=== PATIENT | male | born 1975 | race Caucasian/White ===

== ENCOUNTER 2017-10-20 09:04 | Emergency (ER) | payer SELFPAY ==
[2017-10-20 09:08] VITALS: BP 142/83
--- NOTE | 2017-10-20 10:19 | ER Document Report ---
HPI - HPI Patient complains to provider of: Left arm pain Onset: Yesterday Onset/Duration: Sudden Quality of pain: Sharp Pain Level: 5 Context: Patient states he was attempting to lift a long tractor into a truck and lifted up on the machine and had a sudden pain to his left upper arm area. Patient states that it felt as though the muscle rolled. Patient states since then he has had weakness with lifting his arm up. Associated Symptoms: Other - L upper arm pain Exacerbated by: Movement Relieved by: Denies Similar symptoms previously: No Recently seen / treated by doctor: No - ROS ROS below otherwise negative: Yes Systems Reviewed and Negative: Yes All other systems reviewed and negative - NEURO Neurology: REPORTS: Weakness - LUE - MUSCULOSKELETAL Musculoskeletal: REPORTS: Extremity pain - LUE - DERM Skin Color: Normal Skin Problems: None Past Medical History - General Information source: Patient - Social History Smoking Status: Current Every Day Smoker Smoking Education Provided: Yes Frequency of alcohol use: Rare Drug Abuse: None Occupation: steel work Family History: Reviewed & Not Pertinent Patient has suicidal ideation: No Patient has homicidal ideation: No - Medical History Medical History: Negative Renal/ Medical History: Denies: Hx Peritoneal Dialysis Past Surgical History: Reports: Hx Orthopedic Surgery - Left hand Vertical Provider Document - CONSTITUTIONAL Agree With Documented VS: Yes Exam Limitations: No Limitations General Appearance: WD/WN, No Apparent Distress - INFECTION CONTROL TRAVEL OUTSIDE OF THE [place] IN LAST 30 DAYS: No - HEENT HEENT: Atraumatic, Normocephalic - NECK Neck: Normal Inspection, Supple - RESPIRATORY Respiratory: Breath Sounds Normal, No Respiratory Distress O2 Sat by Pulse Oximetry: 100 - CARDIOVASCULAR Cardiovascular: Regular Rate, Regular Rhythm Pulses: Normal: Radial - BACK Back: Normal Inspection - MUSCULOSKELETAL/EXTREMETIES Musculoskeletal/Extremeties: MAEW, Tender - Tenderness along palpation of bicep muscle. Patient with weakness with flexion of left elbow. Patient with decreased muscle tone to left bicep as compared with the right - NEURO Level of Consciousness: Awake, Alert, Appropriate - DERM Integumentary: Warm, Dry, No Rash Course - Re-evaluation Re-evalutation: 10/20/17 10:18 The patient has been informed that they may have pre-hypertension or hypertension based on a blood pressure reading in the emergency department. I recommend that patient call the primary care provider listed on their discharge instructions or a physician of their choice by this week to arrange follow-up for further evaluation of possible pre-hypertension or hypertension. - Vital Signs Vital signs: Temp Pulse Resp BP Pulse Ox 98.6 F 68 16 142/83 H 100 10/20/17 09:07 10/20/17 09:07 10/20/17 09:07 10/20/17 09:07 10/20/17 09:07 Procedures - Immobilization Left Arm Pre-Proc Neuro Vasc Exam: Normal Immobilizer type: Sling Performed by: RN Post-Proc Neuro Vasc Exam: Normal Alignment checked and good: Yes Discharge - Discharge Clinical Impression: Elevated blood pressure reading, Injury of tendon of biceps Condition: Stable Disposition: HOME, SELF-CARE Instructions: Ice & Elevation ([facility]), Oral Narcotic Medication ([facility]), Temporary Sling ([facility]), Tendon Strain ([facility]) Additional Instructions: Return immediately for any new or worsening symptoms Followup with your primary care provider, call tomorrow to make a followup appointment You have symptoms concerning for bicep tendon tear or rupture. You will need to follow-up with orthopedic doctor for evaluation, call today for follow-up appointment. Prescriptions: Hydrocodone/Acetaminophen [[place] 5-325 Tablet] 1 each PO Q4 PRN #15 tablet PRN Reason: Naproxen [Naprosyn 250 Nmg Tablet] 1 tab PO BID #14 tablet Forms: Elevated Blood Pressure, Smoking Cessation Education, Return to Work Referrals: [facility] ([facility]) [Provider Group] - Follow up tomorrow
== END 2017-10-20 10:20 | disposition home or self-care (01) ==
LOC: ER 09:04
DX: S46.209A Unspecified injury of muscle, fascia and tendon of other parts of biceps, unspecified arm, initial encounter (principal); X50.0XXA Overexertion from strenuous movement or load, initial encounter; Y93.89 Activity, other specified; R53.1 Weakness; R03.0 Elevated blood-pressure reading, without diagnosis of hypertension; F17.200 Nicotine dependence, unspecified, uncomplicated
CPT/HCPCS: 99283

== ENCOUNTER → 2017-11-04 | Outpatient (CLI) | payer OTHER ==
--- NOTE | 2017-11-04 15:01 | RADIOLOGY REPORT (SQ) ---
EXAM DESCRIPTION: MRI LT UPPER JOINT WITHOUT COMPLETED DATE/TIME: 11/04/2017 1:42 pm REASON FOR STUDY: STRAIN OF MUSCLS FASCIA AND TENDON OF OTHER PARTS OF BICEPS, LEFT ARM S46.212A ST RAIN OF MUSC/FASC/TEND PRT BICEPS, LEFT ARM, INIT COMPARISON: None. TECHNIQUE: Left elbow images acquired and stored on PACS. Multiplanar images to include fat sensitiv e sequences as T1, fluid sensitive sequences as T2/STIR, cartilage sensitive sequences as FSPD, and g radient echo sequences. LIMITATIONS: None. FINDINGS: BONE MARROW: No alteration of signal to suggest marrow replacement or edema. No occult fra cture. No large osteophytes. JOINT EFFUSION: None noted. No loose bodies. ARTICULAR SURFACES: Normal. MEDIAL COLLATERAL LIGAMENT COMPLEX: Intact without edema or tear. MEDIAL EPICONDYLE AND COMMON FLEXOR TENDON: No tendinopathy. No partial or full-thickness tear. LATERAL COLLATERAL LIGAMENT: Intact without edema or tear. LATERAL EPICONDYLE AND COMMON EXTENSOR TENDON: No tendinopathy. No partial or full-thickness tear. LATERAL ULNAR COLLATERAL LIGAMENT: Intact without evidence for tear. BICEPS TENDON: Full-thickness tear distal biceps tendon, with proximal retraction of the tendon from its insertion on the radial tuberosity about 4 cm. There is fluid in the tendon gap on sagittal imag e 10, with the torn retracted tendon seen on sagittal image 9. There are a few distal tendon fibers along the greater tuberosity on axial STIR images 2 through 5. TRICEPS TENDON: Intact. ULNAR NERVE: Well-visualized without edema or encroachment. ADJACENT SOFT TISSUES: No masses or edema. OTHER: No other significant finding. IMPRESSION: Full-thickness tear biceps tendon at its distal attachment TECHNICAL DOCUMENTATION: JOB ID: [id number] [employer]- All Rights Reserved Reading location - IP/workstation name: [email or web address]
== END ==
LOC: RAD 12:47
PROVIDERS: ATTEND Orthopaedic Surgery
DX: S46.212A Strain of muscle, fascia and tendon of other parts of biceps, left arm, initial encounter (principal); X58.XXXA Exposure to other specified factors, initial encounter; Y93.9 Activity, unspecified; Y92.9 Unspecified place or not applicable; Y99.9 Unspecified external cause status

== ENCOUNTER 2017-11-14 11:46 | Day surgery (SDC) | payer OTHER ==
[~2017-11-14 11:46] MED LIST: CEFAZOLIN SODIUM 2 GM in NORMAL SALINE 100 ML IV SCH
[2017-11-14 12:45] LABS: APPEARANCE,URINE CLEAR; BILIRUBIN,URINE NEGATIVE (NEGATIVE); COLOR,URINE YELLOW; GLUCOSE, URINE NEGATIVE (NEGATIVE); KETONES,URINE NEGATIVE (NEGATIVE); LEUKOCYTE ESTERASE,URINE NEGATIVE (NEGATIVE); NITRITE,URINE NEGATIVE (NEGATIVE); PROTEIN,URINE NEGATIVE (NEGATIVE); URINE SPECIFIC GRAVITY 1.013; UROBILINOGEN,URINE NEGATIVE mg/dL (<2.0)
--- NOTE | 2017-11-14 13:14 | RADIOLOGY REPORT (SQ) ---
EXAM DESCRIPTION: CHEST SINGLE VIEW COMPLETED DATE/TIME: 11/14/2017 1:02 pm REASON FOR STUDY: PREOP COMPARISON: None. EXAM PARAMETERS: NUMBER OF VIEWS: One view. TECHNIQUE: Single frontal radiographic view of the chest acquired. RADIATION DOSE: NA LIMITATIONS: None. FINDINGS: LUNGS AND PLEURA: No opacities, masses or pneumothorax. No pleural effusion. MEDIASTINUM AND HILAR STRUCTURES: No masses. Contour normal. HEART AND VASCULAR STRUCTURES: Heart normal in size. Normal vasculature. BONES: No acute findings. HARDWARE: None in the chest. OTHER: No other significant finding. IMPRESSION: NO ACUTE RADIOGRAPHIC FINDING IN THE CHEST. TECHNICAL DOCUMENTATION: JOB ID: [id number] [employer]- All Rights Reserved Reading location - IP/workstation name: [email or web address]
[2017-11-14 13:32] LABS: HEMATOCRIT 45.5 % (37.9-51.0); HEMOGLOBIN 15.6 g/dL (13.5-17.0); MEAN CORPUSCULAR HEMOGLOBIN 32.4 pg (27.0-33.4); MEAN CORPUSCULAR HGB CONC 34.2 g/dL (32.0-36.0); MEAN CORPUSCULAR VOLUME 95 fl (80-97); RED BLOOD COUNT 4.81 10^6/uL (4.35-5.55); RED CELL DISTRIBUTION WIDTH 12.7 % (11.5-14.0); WHITE BLOOD COUNT 13.5 10^3/uL (4.0-10.5)
[2017-11-14 13:45] LABS: ANION GAP 7 (5-19); BLOOD UREA NITROGEN 10 mg/dL (7-20); CALCIUM 9.3 mg/dL (8.4-10.2); CARBON DIOXIDE 25 mmol/L (22-30); CHLORIDE 109 mmol/L (98-107); GLUCOSE 82 mg/dL (75-110); POTASSIUM 4.3 mmol/L (3.6-5.0); SODIUM 141.2 mmol/L (137-145)
[2017-11-14 13:53] LABS: PLATELET COUNT 217 10^3/uL (150-450)
[2017-11-14] MEDS ORDERED: BUPIVACAINE HCL 0.5 % INJ/PF 30 ML SDV ONE (14:27)
[2017-11-14] MEDS ORDERED: BACITRACIN INJ 50,000 UNIT VIAL ONE (14:27)
[2017-11-14] MEDS ORDERED: FENTANYL CITRATE INJ/PF 100 MCG/2 ML AMPUL ONE ×2 (15:58)
[2017-11-14] MEDS ORDERED: LIDOCAINE 2% INJ-PF (20 MG/ML) 10 ML AMPUL ONE (15:58)
[2017-11-14] MEDS ORDERED: DEXAMETHASONE SOD PHOSPHATE INJ 4 MG/1 ML VIAL ONE (15:59)
[2017-11-14] MEDS ORDERED: ONDANSETRON HCL INJ/PF 4 MG/2 ML SDV ONE (15:59)
[2017-11-14] MEDS ORDERED: ACETAMINOPHEN 100 ML IV ONE (15:59)
[2017-11-14] MEDS ORDERED: PROPOFOL INJ 200 MG/20 ML VIAL IV ONE (15:59)
[2017-11-14] MEDS ORDERED: MIDAZOLAM 2 MG/2 ML INJ ONE (15:59)
[2017-11-14] MEDS ORDERED: MORPHINE SULFATE 10 MG/ML INJ IV PRN (17:12)
[2017-11-14] MEDS ORDERED: MEPERIDINE HCL/PF INJ 25 MG/1 ML DISP.SYRIN IV PRN (17:12)
[2017-11-14] MEDS ORDERED: PROMETHAZINE HCL INJ 25 MG/1 ML VIAL IV PRN ×2 (17:12)
[2017-11-14] MEDS ORDERED: DIPHENHYDRAMINE HCL 50 MG/ML VIAL IV PRN (17:12)
[2017-11-14] MEDS ORDERED: OXYCODONE-ACETAMINOPHEN 5-325 MG TABLET PO PRN ×3 (17:12→18:05)
[2017-11-14] MEDS ORDERED: FENTANYL CITRATE INJ/PF 100 MCG/2 ML AMPUL IV PRN ×3 (17:12)
[2017-11-14] MEDS ORDERED: ONDANSETRON HCL INJ/PF 4 MG/2 ML SDV IV PRN (18:05)
--- NOTE | 2017-11-14 18:06 | Discharge Summary ---
Discharge Summary (SDC) - Discharge Final Diagnosis: Left distal biceps rupture Date of Surgery: 11/14/17 Discharge Date: 11/14/17 Condition: Good Treatment or Instructions: Schedule Follow Up w/ Dr. Junior Devlin @ [facility] for Surgery to be seen in 10-14 days or as scheduled [place]: [place]: [place]: Ice and elevate Keep splint clean/dry/intact. If your fingers become numb please unwrap the Tony wrap but leave the splint in place, if the sensation does not return within 30 minutes please return to the emergency department. May begin finger range of motion attempting to make full fist. Please use ibuprofen (Motrin or Advil) 600-800 mg every 8 hours as needed for pain or fever DO NOT TAKE w/ TORADOL may use once TORADOL complete. You may also use acetaminophen (Tylenol) 1000 mg every 4-6 hours as needed for pain or fever. Please be aware that many medications contain acetaminophen, do not exceed a total of 1000 mg of acetaminophen every 6 hours. If ibuprofen and acetaminophen are not sufficient for your pain you may take the Percocet/Nutley. Please be aware that the Percocet/Nutley does contain Tylenol. Stool softener of choice when on pain medication. Prescriptions: Ketorolac Tromethamine [Toradol 10 mg Tablet] 10 mg PO Q8HP PRN #10 tablet PRN Reason: Oxycodone HCl/Acetaminophen [Percocet 5-325 mg Tablet] 1 - 2 tab PO ASDIR PRN # 30 tablet PRN Reason: Discharge Diet: As Tolerated Respiratory Treatments at Home: Deep Breathing/Coughing Report the Following to Your Physician Immediately: Increase in Pain, Fever over 101 Degrees, Unusual Bleeding, Redness, Swelling, Warmth, Increased Soreness
--- NOTE | 2017-11-14 18:11 | Operative Report ---
Operative Report DATE OF SURGERY: 11/14/17 PREOPERATIVE DIAGNOSIS: Left distal biceps tendon rupture POSTOPERATIVE DIAGNOSIS: Same OPERATION: Repair of left distal biceps SURGEON: MARTHA RICO ANESTHESIA: GA COMPLICATIONS: None ESTIMATED BLOOD LOSS: Minimal PROCEDURE: Indication for above procedure: 42-year-old male who sustained a injury to his left elbow. He was seen at the emergency room where radiographs and examination findings were consistent with distal biceps rupture. MRI was obtained confirming diagnosis. Subsequently followed up with me we discussed treatment options including operative versus nonoperative intervention decision was made to proceed with operative treatment. Procedure In Detail: Patient was seen and evaluated in the preoperative holding area. The left upper extremity was initialized and marked. Patient received 2g of Ancef IV for bacterial prophylaxis. Patient was taken back to the operative room where transferred to the operative table and placed under general anesthesia. Once they were adequately anesthetized a nonsterile tourniquet was placed on the upper extremity. A surgical team debriefing was performed ensuring all instrumentation was available, the surgical procedure was discussed with possible concerns reviewed. The upper extremity was prepped with Chloroprep and draped in a sterile fashion. A timeout was done identifying correct patient, procedure and extremity everyone in attendance agree with this and verbalized no concerns. The extremity was exsanguinated the tourniquet was inflated to 250 mmHg. Longitudinal skin incision was made 3 cm distal to the antecubital fascia. Blunt dissection was performed the lateral antebrachial cutaneous nerve was identified and retracted. The distal biceps tendon was identified there is significant fraying of the distal portion. This area was debrided I then freed the biceps from any surrounding scar tissue proximally. Once appropriate excursion of the biceps was achieved the turned my attention to preparation of the insertion. Blunt dissection was performed down to the radial tuberosity. The leash of Kevin was identified. Small tributaries were isolated and controlled with bipolar and ties. There was some remaining fibers of the biceps attached to the radial tuberosity. This was carefully debrided. To further expose the radial tuberosity my biology research assistant held the arm in full supination in the central portion of the radial tuberosity was identified. A Hohmann retractor was placed ulnarly but not placed radially to avoid iatrogenic injury to the PIN nerve. A bicortical guidepin was placed centrally 30 and ulnarly. Measurement of the distal biceps demonstrate a 8 mm tunnel. Unicortical reamer was used to complete the near cortex. Irrigation was performed during this step to avoid residual bone. With the arm in full supination and flexion to 90 the tendon was docked within the radial tuberosity. With a free needle a horizontal mattress suture was placed and secured. With the remaining limb a 7 x 10 mm tenodesis screw was placed along the radial border of the biceps to further displacement ulnarly. I was able to extend the elbow to approximately 60 of extension. The wound was then copiously irrigated with normal saline. C-arm fluoroscopy was obtained confirming appropriate placement of the button. Subcutaneous tissues were closed with 4-0 Monocryl suture. Skin was closed with Dermabond. 20 cc of 0.5% Marcaine with epinephrine was injected for postoperative pain control. Patient was placed in a posterior splint maintaining flexion at 80 and full supination. Tourniquet was deflated. Patient good peripheral perfusion. Sponge counts, instrument counts, needle counts counts were correct. Patient was then awoken from anesthesia. Transferred from the operating room table to the operating room stretcher. There was no intraoperative complications patient tolerated procedure well stable to PACU. Postoperative plan: Patient will follow-up the office in 2 weeks for wound check and will be started on therapy as per distal biceps protocol.
[2017-11-14] MEDS: FENTANYL CITRATE INJ/PF 100 MCG/2 ML AMPUL ONE ×2 (18:16→18:25)
[2017-11-14] MEDS ORDERED: MORPHINE SULFATE 10 MG/ML INJ ONE (18:26)
--- NOTE | 2017-11-14 18:28 | RADIOLOGY REPORT (SQ) ---
EXAM DESCRIPTION: NO CHG FLUORO; ELBOW LEFT AP/LATERAL COMPLETED DATE/TIME: 11/14/2017 6:03 pm REASON FOR STUDY: LEFT ELBOW TENDON REPAIR COMPARISON: MR 11/04/2017 FLUOROSCOPY TIME: 12 seconds 1 Image saved to PACS LIMITATIONS: None. PROCEDURE: Biceps tendon repair FINDINGS: A single image was obtained from fluoro document the tendon repair. IMPRESSION: Biceps tendon repair P COMMENT: PQRS 6045F: Fluoroscopy time of the procedure is documented in the report. TECHNICAL DOCUMENTATION: JOB ID: [id number] [employer]- All Rights Reserved Reading location - IP/workstation name: [email or web address]
--- NOTE | 2017-11-14 18:28 | RADIOLOGY REPORT (SQ) ---
EXAM DESCRIPTION: NO CHG FLUORO; ELBOW LEFT AP/LATERAL COMPLETED DATE/TIME: 11/14/2017 6:03 pm REASON FOR STUDY: LEFT ELBOW TENDON REPAIR COMPARISON: MR 11/04/2017 FLUOROSCOPY TIME: 12 seconds 1 Image saved to PACS LIMITATIONS: None. PROCEDURE: Biceps tendon repair FINDINGS: A single image was obtained from fluoro document the tendon repair. IMPRESSION: Biceps tendon repair P COMMENT: PQRS 6045F: Fluoroscopy time of the procedure is documented in the report. TECHNICAL DOCUMENTATION: JOB ID: [id number] [employer]- All Rights Reserved Reading location - IP/workstation name: [email or web address]
[2017-11-14] MEDS ORDERED: PROMETHAZINE HCL INJ 25 MG/1 ML VIAL ONE (18:48)
[2017-11-14] MEDS: CEFAZOLIN 2 GM/D5W RTU 2 GM/50 ML RTUPB IV PRN ×3 (21:22→23:15)
[2017-11-14 22:07] VITALS: BP 131/71
--- NOTE | 2017-11-14 22:16 | EKG REPORT ---
SEVERITY:- NORMAL ECG - SINUS RHYTHM : Confirmed by: Chay Arshad 14-Nov-2017 22:15:10
== END 2017-11-14 22:30 | disposition home or self-care (01) ==
LOC: 4N 11:46 → OROUT 11:46
PROVIDERS: ATTEND Orthopaedic Surgery
DX: S46.211D Strain of muscle, fascia and tendon of other parts of biceps, right arm, subsequent encounter (principal); X58.XXXD Exposure to other specified factors, subsequent encounter; F17.210 Nicotine dependence, cigarettes, uncomplicated
CPT/HCPCS: 36415; 85027; 80048; 81001; 71045; 73070; 93005; 93010; 24341; C1713; J2250; J3490 ×2; J1100; J3010; J2270; J2550; J2405; J2704; J0690; J0131; 01710

== ENCOUNTER 2018-07-22 10:34 | Emergency (ER) | payer OTHER ==
[2018-07-22 10:46] VITALS: BP 121/77
[2018-07-22] MEDS ORDERED: SULFAMETHOXAZOLE/TRIMETHOPRIM 800-160 MG TABLET PO ONE (11:10)
[2018-07-22] MEDS ORDERED: IBUPROFEN 800 MG TABLET PO ONE (11:10)
[2018-07-22] MEDS ORDERED: CEPHALEXIN 500 MG CAPSULE PO ONE (11:10)
--- NOTE | 2018-07-22 11:16 | ER Document Report ---
HPI - HPI Patient complains to provider of: Nose tenderness Time Seen by Provider: 07/22/18 10:56 Onset: Other - 4 days Onset/Duration: Worse Quality of pain: Sharp Pain Level: 4 Context: Patient complains of nose tenderness swelling and erythema for the past 4 days. Patient states pain does radiate given him a headache. Patient denies any fever. Patient denies any injury to the nose. Patient states that he has had a family member in the household with MRSA recently. Associated Symptoms: Other - Nose tenderness and swelling. denies: Fever Exacerbated by: Denies Relieved by: Denies Similar symptoms previously: No Recently seen / treated by doctor: No - ROS ROS below otherwise negative: Yes Systems Reviewed and Negative: Yes All other systems reviewed and negative - CONSTITUTIONAL Constitutional: DENIES: Fever - EENT Notes: Nose pain, redness - NEURO Neurology: REPORTS: Headache. DENIES: Vision blurred - RESPIRATORY Respiratory: DENIES: Coughing - GASTROINTESTINAL Gastrointestinal: DENIES: Nausea, Patient vomiting - MUSCULOSKELETAL Musculoskeletal: DENIES: Back Pain, Neck Pain - DERM Skin Color: Erythema Past Medical History - General Information source: Patient - Social History Smoking Status: Never Smoker Smoking Education Provided: Yes Frequency of alcohol use: None Drug Abuse: None Occupation: [employer] Lives with: Family Family History: Reviewed & Not Pertinent Patient has suicidal ideation: No Patient has homicidal ideation: No - Medical History Medical History: Negative Neurological Medical History: Denies: Hx Cerebrovascular Accident, Hx Seizures Renal/ Medical History: Denies: Hx Peritoneal Dialysis Musculoskeletal Medical History: Reports Hx Arthritis - LEFT HAND Past Surgical History: Reports: Hx Orthopedic Surgery - Left hand - Immunizations Hx Diphtheria, Pertussis, Tetanus Vaccination: Yes Vertical Provider Document - CONSTITUTIONAL Agree With Documented VS: Yes Exam Limitations: No Limitations General Appearance: WD/WN, No Apparent Distress - INFECTION CONTROL TRAVEL OUTSIDE OF THE [place]. IN LAST 30 DAYS: No - HEENT HEENT: Atraumatic, Normocephalic Notes: Patient with erythema to the tip of the nose surrounding the right nostril, area exquisitely tender to touch and mildly swollen. Area of tenderness just inside of the right nostril anteriorly. No palpable abscess to be drained at this time. No septal swelling. No facial erythema, no periorbital erythema or swelling, no proptosis. - NECK Neck: Normal Inspection, Supple. negative: Lymphadenopathy-Left, Lymphadenopathy-Right - RESPIRATORY Respiratory: Breath Sounds Normal, No Respiratory Distress - CARDIOVASCULAR Cardiovascular: Regular Rate, Regular Rhythm - MUSCULOSKELETAL/EXTREMETIES Musculoskeletal/Extremeties: MAEW - NEURO Level of Consciousness: Awake, Alert, Appropriate Motor/Sensory: No Motor Deficit - DERM Integumentary: Warm, Dry, No Rash. negative: Abscess Course - Re-evaluation Re-evalutation: 07/22/18 11:[address] Lopez regarding patient presentation, recommend having patient come back in 2 days for wound recheck agrees with plan for coverage with Bactrim and Keflex. - Vital Signs Vital signs: Temp Pulse Resp BP Pulse Ox 98.2 F 84 16 121/77 97 07/22/18 10:45 07/22/18 10:45 07/22/18 10:45 07/22/18 10:45 07/22/18 10:45 Discharge - Discharge Clinical Impression: Nose cellulitis Condition: Stable Disposition: HOME, SELF-CARE Instructions: Bactroban Ointment ([facility]), Cellulitis ([facility]), Cephalexin ([facility]), Oral Narcotic Medication ([facility]), Trimethoprim-Sulfa ([facility]) Additional Instructions: Return immediately for any new or worsening symptoms Followup with your primary care provider, call tomorrow to make a followup appointment Return in 2 days for wound recheck Prescriptions: Cephalexin Monohydrate [Keflex 500 mg Capsule] 500 mg PO Q6H 7 Days capsule Mupirocin [Bactroban 2% Ointment 22 gm] 1 applic TP TID #22 gm Naproxen [Naprosyn 250 Nmg Tablet] 1 tab PO BID #14 tablet Oxycodone HCl/Acetaminophen [Percocet 5-325 mg Tablet] 1 tab PO ASDIR PRN #10 tablet PRN Reason: Sulfamethoxazole/Trimethoprim [Bactrim Ds Tablet] 1 each PO BID #20 tablet Forms: Smoking Cessation Education, Return to Work Referrals: [facility] [Provider Group] - Follow up as needed
== END 2018-07-22 11:25 | disposition home or self-care (01) ==
LOC: ER 10:34
DX: J34.0 Abscess, furuncle and carbuncle of nose (principal); R51 Headache; Z20.818 Contact with and (suspected) exposure to other bacterial communicable diseases
CPT/HCPCS: 99283

== ENCOUNTER 2018-07-24 10:19 | Emergency (ER) | payer OTHER ==
--- NOTE | 2018-07-24 11:48 | ER Document Report ---
ED Wound - General Chief Complaint: Wound Recheck Stated Complaint: WOUND RECHECK Time Seen by Provider: 07/24/18 10:49 Mode of Arrival: Ambulatory Information source: Patient Notes: Patient is a 43-year-old male who presents with chief complaint of wound recheck. Patient reports several days ago he was diagnosed here with nasal cellulitis. Patient reports he is taking Keflex and Bactrim. States he is supposed to follow-up with ENT next week. Patient reports he thinks he is improving but still has significant pain. TRAVEL OUTSIDE OF THE U[place] IN LAST 30 DAYS: No - Related Data Allergies/Adverse Reactions: No Known Allergies Allergy (Verified 07/24/18 10:19) Past Medical History - General Information source: Patient - Social History Smoking Status: Never Smoker Family History: Reviewed & Not Pertinent Patient has suicidal ideation: No Patient has homicidal ideation: No - Past Medical History Cardiac Medical History: Denies: Hx Coronary Artery Disease, Hx Heart Attack, Hx Hypertension Pulmonary Medical History: Denies: Hx Asthma, Hx Bronchitis, Hx COPD, Hx Pneumonia Neurological Medical History: Denies: Hx Cerebrovascular Accident, Hx Seizures Renal/ Medical History: Denies: Hx Peritoneal Dialysis Musculoskeletal Medical History: Reports Hx Arthritis - LEFT HAND Past Surgical History: Reports: Hx Orthopedic Surgery - Left hand - Immunizations Hx Diphtheria, Pertussis, Tetanus Vaccination: Yes Review of Systems - Review of Systems Skin: See HPI -: Yes All other systems reviewed and negative Physical Exam - Vital signs Vitals: Temp Pulse Resp BP Pulse Ox 98.0 F 75 16 121/67 100 07/24/18 10:22 07/24/18 10:22 07/24/18 10:22 07/24/18 10:22 07/24/18 10:22 - Notes Notes: PHYSICAL EXAMINATION: GENERAL: Well-appearing, well-nourished and in no acute distress. HEAD: Atraumatic, normocephalic. EYES: Pupils equal round extraocular movements intact, conjunctiva are normal. ENT: Nares patent, swelling and erythema noted to nose. NECK: Normal range of motion LUNGS: No respiratory distress Musculoskeletal: Normal range of motion NEUROLOGICAL: Normal speech, normal gait. PSYCH: Normal mood, normal affect. SKIN: Warm, Dry, normal turgor, no rashes or lesions noted. Course - Re-evaluation Re-evalutation: Patient to continue taking antibiotics as prescribed. Will give patient additional pain medications while awaiting ENT follow-up. - Vital Signs Vital signs: Temp Pulse Resp BP Pulse Ox 98 F 74 16 127/47 H 100 07/24/18 11:49 07/24/18 11:49 07/24/18 11:49 07/24/18 11:49 07/24/18 11:49 Discharge - Discharge Clinical Impression: Nose cellulitis Condition: Stable Disposition: HOME, SELF-CARE Additional Instructions: Please continue taking the antibiotics as prescribed. I have given you additional pain medications to get you through the weekend. Please call the ENT office Friday morning to try to schedule an appointment for follow-up. Prescriptions: Oxycodone HCl/Acetaminophen [Percocet 5-325 mg Tablet] 1 tab PO Q4H PRN #10 tablet PRN Reason: Forms: Return to Work Referrals: [facility] [ASSOCIATE] - Follow up as needed
[2018-07-24 11:50] VITALS: BP 127/47
== END 2018-07-24 11:54 | disposition home or self-care (01) ==
LOC: ER 10:19
DX: L03.211 Cellulitis of face (principal)
CPT/HCPCS: 99283

== ENCOUNTER 2018-11-20 04:16 | Emergency (ER) | payer SELFPAY ==
[2018-11-20] MEDS ORDERED: LIDOCAINE 5% (700 MG) TRANSDERMAL ADH..PATCH TP ONE (06:33)
--- NOTE | 2018-11-20 06:39 | ER Document Report ---
ED General - General Chief Complaint: Shoulder Pain Stated Complaint: RIGHT SHOULDER PAIN Time Seen by Provider: 11/20/18 06:18 Primary Care Provider: ANA WESTFALL DO [Primary Care Provider] - Follow up as needed TRAVEL OUTSIDE OF THE [place] IN LAST 30 DAYS: No - HPI Patient complains to provider of: Right shoulder pain Notes: Patient states a few days prior to arrival was reaching over to turn off the alarm when started having pain right mid shoulder patient denies fever chills nausea vomiting denies any other trauma. States difficulty lifting above 90 degrees. Patient resting comfortably upon my evaluation. - Related Data Allergies/Adverse Reactions: No Known Allergies Allergy (Verified 07/24/18 10:19) Past Medical History - Social History Smoking Status: Current Every Day Smoker Family History: Reviewed & Not Pertinent Patient has suicidal ideation: No Patient has homicidal ideation: No - Past Medical History Cardiac Medical History: Denies: Hx Coronary Artery Disease, Hx Heart Attack, Hx Hypertension Pulmonary Medical History: Denies: Hx Asthma, Hx Bronchitis, Hx COPD, Hx Pneumonia Neurological Medical History: Denies: Hx Cerebrovascular Accident, Hx Seizures Renal/ Medical History: Denies: Hx Peritoneal Dialysis Musculoskeletal Medical History: Reports Hx Arthritis - LEFT HAND Past Surgical History: Reports: Hx Orthopedic Surgery - Left hand - Immunizations Hx Diphtheria, Pertussis, Tetanus Vaccination: Yes Review of Systems - Review of Systems Constitutional: No symptoms reported EENT: No symptoms reported Cardiovascular: No symptoms reported Respiratory: No symptoms reported Gastrointestinal: No symptoms reported Genitourinary: No symptoms reported Male Genitourinary: No symptoms reported Musculoskeletal: Other - Shoulder pain Skin: No symptoms reported Hematologic/Lymphatic: No symptoms reported Neurological/Psychological: No symptoms reported Physical Exam - Vital signs Vitals: Temp Pulse Resp BP Pulse Ox 98.2 F 74 15 141/79 H 98 11/20/18 04:31 11/20/18 04:31 11/20/18 04:31 11/20/18 04:31 11/20/18 04:31 Interpretation: Normal - General General appearance: Appears well, Alert - HEENT Head: Normocephalic, Atraumatic Eyes: Normal Pupils: PERRL - Respiratory Respiratory status: No respiratory distress Chest status: Nontender Breath sounds: Normal Chest palpation: Normal - Cardiovascular Rhythm: Regular Heart sounds: Normal auscultation Murmur: No - Abdominal Inspection: Normal Distension: No distension Bowel sounds: Normal Tenderness: Nontender Organomegaly: No organomegaly - Back Back: Normal, Nontender - Extremities General upper extremity: Normal inspection, Normal color, Normal temperature, Other - Left shoulder no abnormality right shoulder tenderness just above the supraspinatus region lateral trap region with difficulty in abduction the arm over 90 degrees. Consistent with possible trapezius strain General lower extremity: Normal inspection, Nontender, Normal color, Normal ROM, Normal temperature, Normal weight bearing. No: Hoda's sign - Neurological Neuro grossly intact: Yes Cognition: Normal Orientation: AAOx4 Ezekiel Coma Scale Eye Opening: Spontaneous Guys Coma Scale Verbal: Oriented Guys Coma Scale Motor: Obeys Commands Guys Coma Scale Total: 15 Speech: Normal Motor strength normal: LUE, RUE, LLE, RLE Sensory: Normal - Psychological Associated symptoms: Normal affect, Normal mood - Skin Skin Temperature: Warm Skin Moisture: Dry Skin Color: Normal Course - Re-evaluation Re-evalutation: 11/20/18 12:45 Patient with a muscle strain will be discharged home pain management regiment patient was discharged - Vital Signs Vital signs: Temp Pulse Resp BP Pulse Ox 97.5 F 62 18 119/71 100 11/20/18 06:59 11/20/18 06:59 11/20/18 06:59 11/20/18 06:59 11/20/18 06:59 Discharge - Discharge Clinical Impression: Trapezius muscle strain Qualifiers: Encounter type: initial encounter Laterality: right Qualified Code(s): S46.811A - Strain of other muscles, fascia and tendons at shoulder and upper arm level, right arm, initial encounter Disposition: HOME, SELF-CARE Instructions: Muscle Strain (OM) Additional Instructions: Your physical examination is consistent with a trapezius muscle sprain or strain. I would recommend Tylenol Motrin together as prescribed to help out with your pain control he may use Ultram for severe pain. He may also use warm packs ice packs to the area to help out with your pain. Please return to the ER for any other concerning etiology. I would inquire with your pharmacy about [id number] lidocaine patches. Prescriptions: Ibuprofen [Motrin 600 mg Tablet] 600 mg PO Q8HP PRN #21 tablet PRN Reason: Tramadol HCl [Ultram 50 mg Tablet] 50 mg PO ASDIR PRN #14 tablet PRN Reason: Forms: Return to Work Referrals: ANA WESTFALL, [Primary Care Provider] - Follow up as needed
[2018-11-20 07:01] VITALS: BP 119/71
== END 2018-11-20 07:01 | disposition home or self-care (01) ==
LOC: ER 04:16
DX: S29.012A Strain of muscle and tendon of back wall of thorax, initial encounter (principal); M25.511 Pain in right shoulder; F17.200 Nicotine dependence, unspecified, uncomplicated
CPT/HCPCS: 99283

== ENCOUNTER 2019-01-01 16:12 | Emergency (ER) | payer SELFPAY ==
[2019-01-01] MEDS ORDERED: ASPIRIN 81 MG TABLET, CHEWABLE PO ONE (17:26)
--- NOTE | 2019-01-01 17:27 | ER Document Report ---
ED Medical Screen (RME) - General Chief Complaint: Chest Pain Stated Complaint: CHEST PAIN Time Seen by Provider: 01/01/19 17:26 Primary Care Provider: ANA WESTFALL DO [Primary Care Provider] - Follow up as needed Mode of Arrival: Ambulatory Information source: Patient Notes: Patient presents complaining of midsternal chest heaviness that started yesterday around noon. Patient states when his symptoms first started he did get diaphoretic. Patient has had some diarrhea as well. Patient denies any dyspnea or cough. Patient denies any chronic medical problems. I have greeted and performed a rapid initial assessment of this patient. A comprehensive ED assessment and evaluation of the patient, analysis of test results and completion of the medical decision making process will be conducted by additional ED providers. TRAVEL OUTSIDE OF THE [place] IN LAST 30 DAYS: No - Related Data Allergies/Adverse Reactions: No Known Allergies Allergy (Verified 01/01/19 16:30) Past Medical History - Past Medical History Cardiac Medical History: Denies: Hx Coronary Artery Disease, Hx Heart Attack, Hx Hypertension Pulmonary Medical History: Denies: Hx Asthma, Hx Bronchitis, Hx COPD, Hx Pneumonia Neurological Medical History: Denies: Hx Cerebrovascular Accident, Hx Seizures Renal/ Medical History: Denies: Hx Peritoneal Dialysis Musculoskeltal Medical History: Reports Hx Arthritis - LEFT HAND Past Surgical History: Reports: Hx Orthopedic Surgery - Left hand - Immunizations Hx Diphtheria, Pertussis, Tetanus Vaccination: Yes History of Influenza Vaccine for 05/2017 - 10/2017 Season: No Physical Exam - Vital signs Vitals: Temp Pulse Resp BP Pulse Ox 99.3 F 67 15 125/78 98 01/01/19 16:34 01/01/19 16:34 01/01/19 16:34 01/01/19 16:34 01/01/19 16:34 - Cardiovascular Rhythm: Regular Heart sounds: S1 appreciated, S2 appreciated Murmur: No Course - Vital Signs Vital signs: Temp Pulse Resp BP Pulse Ox 99.3 F 67 15 125/78 98 01/01/19 16:34 01/01/19 16:34 01/01/19 16:34 01/01/19 16:34 01/01/19 16:34 Doctor's Discharge - Discharge Referrals: ANA WESTFALL DO [Primary Care Provider] - Follow up as needed
--- NOTE | 2019-01-01 17:52 | RADIOLOGY REPORT (SQ) ---
EXAM DESCRIPTION: CHEST 2 VIEWS COMPLETED DATE/TIME: 01/01/2019 5:41 pm REASON FOR STUDY: cp COMPARISON: 11/14/2017 TECHNIQUE: Frontal and lateral radiographic views of the chest acquired. NUMBER OF VIEWS: Two view. LIMITATIONS: None. FINDINGS: LUNGS AND PLEURA: No pneumothorax. No consolidation or pleural effusion. MEDIASTINUM AND HILAR STRUCTURES: Stable. HEART AND VASCULAR STRUCTURES: Stable. BONES: No acute findings. HARDWARE: None in the chest. OTHER: No other significant finding. IMPRESSION: NO ACUTE FINDINGS. TECHNICAL DOCUMENTATION: JOB ID: [id number] [place]-72 2010 [employer]- All Rights Reserved Reading location - IP/workstation name: [email or web address]
[2019-01-01 18:02] LABS: ABSOLUTE BASOPHILS # (AUTO) 0.1 10^3/uL (0.0-0.2); ABSOLUTE EOSINOPHILS # (AUTO) 0.2 10^3/uL (0.0-0.6); ABSOLUTE MONOCYTES (AUTO) 0.6 10^3/uL (0.1-1.4); ABSOLUTE NEUT (AUTO) 7.5 10^3/uL (1.7-8.2); BASOPHILS % (AUTO) 0.7 % (0-2); EOSINOPHILS % (AUTO) 1.7 % (0-6); HEMATOCRIT 45.9 % (37.9-51.0); HEMOGLOBIN 15.9 g/dL (13.5-17.0); LYMPHOCYTES % (AUTO) 19.1 % (13-45); MEAN CORPUSCULAR HGB CONC 34.6 g/dL (32.0-36.0); MEAN CORPUSCULAR VOLUME 95 fl (80-97); PLATELET COUNT 245 10^3/uL (150-450); RED BLOOD COUNT 4.82 10^6/uL (4.35-5.55); RED CELL DISTRIBUTION WIDTH 12.7 % (11.5-14.0); SEGMENTED NEUTROPHILS % (AUTO) 72.5 % (42-78); TOTAL CELLS COUNTED % (AUTO) 100 %; WHITE BLOOD COUNT 10.4 10^3/uL (4.0-10.5)
[2019-01-01 18:20] LABS: ALANINE AMINOTRANSFERASE 29 U/L (21-72); ALBUMIN 4.8 g/dL (3.5-5.0); ALKALINE PHOSPHATASE 70 U/L (38-126); ANION GAP 10 (5-19); ASPARTATE AMINO TRANSFERASE 27 U/L (17-59); BILIRUBIN,DIRECT 0.2 mg/dL (0.0-0.4); BILIRUBIN,TOTAL 0.9 mg/dL (0.2-1.3); BLOOD UREA NITROGEN 14 mg/dL (7-20); CALCIUM 9.4 mg/dL (8.4-10.2); CARBON DIOXIDE 30 mmol/L (22-30); CHLORIDE 101 mmol/L (98-107); GLUCOSE 114 mg/dL (75-110); LIPASE 199.5 U/L (23-300); POTASSIUM 4.4 mmol/L (3.6-5.0); SODIUM 140.8 mmol/L (137-145); TOTAL PROTEIN 7.7 g/dL (6.3-8.2)
[2019-01-01] MEDS ORDERED: FAMOTIDINE 20 MG TABLET PO ONE (20:33)
[2019-01-01] MEDS ORDERED: ONDANSETRON 4 MG TAB.RAPDIS PO ONE (20:33)
[2019-01-01] MEDS ORDERED: SUCRALFATE 1 GM TABLET PO ONE (20:33)
--- NOTE | 2019-01-01 20:40 | ER Document Report ---
ED Cardiac - General Chief Complaint: Chest Pain Stated Complaint: CHEST PAIN Time Seen by Provider: 01/01/19 17:26 Primary Care Provider: ANA WESTFALL DO [ASSOCIATE] - Follow up as needed Mode of Arrival: Ambulatory Notes: Patient is a 43-year-old male that comes to the emergency department for chief complaint of chest pain. He states that yesterday at noon he was spray painting while wearing a mask, he states that his guns stopped working, he states that he became agitated, he felt heartburn, and then he felt a sharp pain in his chest. He states that he has had felt a mild pressure/discomfort sensation in his chest since that time. He states this is not new, he is has these episodes frequently. He had a negative stress test in the past because of the episodes. He also had an endoscopy at one point which "showed inflammation", he states he tried to change his diet since then. He smokes, he takes regular ibuprofen. He denies alcohol, recreational drugs. He does have positive family history of [place]. Only past medical history reported otherwise his orthopedic surgery. TRAVEL OUTSIDE OF THE [place] IN LAST 30 DAYS: No - Related Data Allergies/Adverse Reactions: No Known Allergies Allergy (Verified 01/01/19 16:30) Past Medical History - General Information source: Patient - Social History Smoking Status: Current Every Day Smoker Chew tobacco use (# tins/day): No Smoking Education Provided: Yes - <3 min Drug Abuse: None Lives with: Family Family History: Reviewed & Not Pertinent Patient has suicidal ideation: No Patient has homicidal ideation: No - Past Medical History Cardiac Medical History: Denies: Hx Coronary Artery Disease, Hx Heart Attack, Hx Hypertension Pulmonary Medical History: Denies: Hx Asthma, Hx Bronchitis, Hx COPD, Hx Pneumonia Neurological Medical History: Denies: Hx Cerebrovascular Accident, Hx Seizures Renal/ Medical History: Denies: Hx Peritoneal Dialysis Musculoskeletal Medical History: Reports Hx Arthritis - LEFT HAND Past Surgical History: Reports: Hx Orthopedic Surgery - Left hand - Immunizations Hx Diphtheria, Pertussis, Tetanus Vaccination: Yes Review of Systems - Review of Systems Constitutional: No symptoms reported EENT: No symptoms reported Cardiovascular: See HPI Respiratory: No symptoms reported Gastrointestinal: See HPI Genitourinary: No symptoms reported Male Genitourinary: No symptoms reported Musculoskeletal: No symptoms reported Skin: No symptoms reported Hematologic/Lymphatic: No symptoms reported Neurological/Psychological: No symptoms reported Physical Exam - Vital signs Vitals: Temp Pulse Resp BP Pulse Ox 99.3 F 67 15 125/78 98 01/01/19 16:34 01/01/19 16:34 01/01/19 16:34 01/01/19 16:34 01/01/19 16:34 - Notes Notes: GENERAL: Alert, interacts well. No acute distress. HEAD: Normocephalic, atraumatic. EYES: Pupils equal, round, and reactive to light. Extraocular movements intact. ENT: Oral mucosa moist, tongue midline. Oropharynx unremarkable. Airway patent. NECK: Full range of motion. Supple. Trachea midline. LUNGS: Clear to auscultation bilaterally, no wheezes, rales, or rhonchi. No resp iratory distress. HEART: Regular rate and rhythm. No murmur ABDOMEN: Soft, non-tender. Non-distended. Bowel sounds present in all 4 quadrants. GENITOURINARY: Deferred EXTREMITIES: Moves all 4 extremities spontaneously. No edema, normal radial and dorsalis pedis pulses bilaterally. No cyanosis. BACK: no cervical, thoracic, lumbar midline tenderness. No saddle anesthesia, normal distal neurovascular exam. NEUROLOGICAL: Alert and oriented x3. Normal speech. . PSYCH: Normal affect, normal mood. SKIN: Warm, dry, normal turgor. No rashes or lesions noted. Course - Re-evaluation Re-evalutation: Chest x-ray unremarkable. EKG without acute or ischemic findings. CBC unremarkable, chemistry unremarkable. Troponin is negative. Patient symptoms started yesterday at noon. Patient is reporting the symptoms are not new and he has had them for some time. His description does suggest dyspepsia/esophageal spasm, he smokes, he takes regular ibuprofen, he has had an EGD in the past with shown esophageal inflammation but he does not take any antacid therapy. He is already requesting to leave when I walked into the room. Because there has been more than 8 hours since the incident with a negative troponin, his heart score is 1 (family history, smoking), discussed with patient and no additional work-up will be performed at this time. Patient will be given Carafate, Pepcid, Zofran here, prescribed medications for home, given recommendations, he does have primary care follow-up. I recommended we reevaluate patient after medications but he declined, states he is ready to leave. Discussed details, follow-up, and return precautions. Patient states understanding and agreement. - Vital Signs Vital signs: Temp Pulse Resp BP Pulse Ox 97.9 F 64 18 109/79 98 01/01/19 21:02 01/01/19 21:02 01/01/19 21:02 01/01/19 21:02 01/01/19 21:02 - Laboratory Result Diagrams: 01/01/19 17:48 01/01/19 17:48 Laboratory results interpreted by me: 01/01/19 17:48 Glucose 114 H - EKG Interpretation by Me Additional EKG results interpreted by me: EKG shows sinus rhythm at a rate of 62, no T wave inversions or ST segment changes in consecutive leads. Normal axis. QTC of 398, CT interval of 152. Discharge - Discharge Clinical Impression: Chest pain Qualifiers: Chest pain type: unspecified Qualified Code(s): R07.9 - Chest pain, unspecified Condition: Stable Disposition: HOME, SELF-CARE Additional Instructions: Based on your history, work-up, and symptoms I suspect your symptoms are gastrointestinal in source but this is not definite. I do recommend that you avoid ibuprofen and other NSAIDs for now, stop smoking, avoid alcohol, avoid spicy food and caffeine. Take prescribed medications as directed. Follow-up with primary care for additional evaluation and management. Return if you worsen including severe pain, vomiting, difficulty breathing, vomiting blood, black stools, or any other concerning symptoms. Prescriptions: Famotidine [Pepcid 20 mg Tablet] 20 mg PO BID #20 tablet Sucralfate [Carafate 1 gm Tablet] 1 gm PO QID #20 tablet Forms: Return to Work Referrals: ANA WESTFALL DO [ASSOCIATE] - Follow up as needed
[2019-01-01 21:05] VITALS: BP 109/79
--- NOTE | 2019-01-01 22:42 | EKG REPORT ---
SEVERITY:- NORMAL ECG - SINUS RHYTHM : Confirmed by: Jemima Paiz MD 01-Jan-2019 22:41:59
== END 2019-01-01 21:05 | disposition home or self-care (01) ==
LOC: ER 16:12
DX: R07.9 Chest pain, unspecified (principal); R12 Heartburn; F17.200 Nicotine dependence, unspecified, uncomplicated
CPT/HCPCS: 93005; 99285; 36415; 83690; 85025; 80053; 84484; 71046; 93010; S0119